=== PATIENT | male | born 1955 | race Caucasian/White ===

== ENCOUNTER 2019-12-15 11:45 | Inpatient (IN) | payer MEDICARE ==
[~2019-12-15] VITALS: Ht 182.9 cm; Wt 130.6 kg
[2019-12-15] MEDS ORDERED: SODIUM CHLORIDE 0.9% 1,000 ML IV ONE (15:09)
[2019-12-15] MEDS ORDERED: FLUMAZENIL 0.1 MG/ML 5ML VIAL IV ONE (15:15)
[2019-12-15] MEDS ORDERED: NALOXONE HCL 1 MG/ML 2ML VIAL IV ONE (15:15)
[2019-12-15 15:32] LABS: CHLORIDE 105 mEq/L (98-107)
[2019-12-15 15:33] LABS: BASOPHILS % 0.6 % (0.0-2.0); EOSINOPHILS % 0.1 % (0.0-5.0); HEMATOCRIT. 46.5 % (42.0-52.0); HEMOGLOBIN. 16.4 g/dL (14.0-18.0); MEAN PLATELET VOLUME 9.9 fl (7.4-10.4); MONOCYTES % 9.2 % (2.0-8.0); NEUTROPHILS % 73.1 % (40.0-76.0); PLATELET 182 x1000/uL (130-400); RED BLOOD CELL COUNT 4.43 mill/uL (4.7-6.1); RED CELL DISTRIBUTION WIDTH 13.9 % (11.6-14.6)
[2019-12-15 15:36] LABS: ETHANOL BLOOD < 10 mg/dL
[2019-12-15 17:03] LABS: CLARITY URINE TURBID (CLEAR); COLOR URINE DARK YELLOW (YELLOW); KETONES URINE TRACE (NEGATIVE); LEUKOCYTE ESTERASE URINE 2+ (NEGATIVE); NITRITE URINE NEGATIVE (NEGATIVE); OCCULT BLOOD URINE 1+ (NEGATIVE); PROTEIN URINE 1+ (NEGATIVE); SPECIFIC GRAVITY URINE 1.029 (1.005-1.030)
[2019-12-15 17:17] LABS: *AMPHETAMINES SCREEN URINE NEGATIVE (NEGATIVE); *BARBITURATES SCREEN URINE NEGATIVE (NEGATIVE); *BENZODIAZEPINES SCREEN URINE PRESUMTIVE POSITIVE (NEGATIVE); *COCAINE SCREEN URINE NEGATIVE (NEGATIVE); CANNABINOID URINE SCREEN PRESUMTIVE POSITIVE (NEGATIVE); METHADONE URINE SCREEN NEGATIVE (NEGATIVE); OPIATES URINE SCREEN NEGATIVE (NEGATIVE); PHENCYCLIDINE URINE SCREEN NEGATIVE (NEGATIVE)
[2019-12-15] MEDS ORDERED: LEVOFLOXACIN 250MG TABLET PO ONE (18:30)
[2019-12-15] MEDS ORDERED: SODIUM CHLORIDE 0.9% 1000ML BAG (SEPSIS BOLUS) IV ONE (18:30)
[2019-12-15] MEDS ORDERED: LEVOFLOXACIN 750MG PREMIX 150 ML IV NR (18:30)
[2019-12-15] MEDS: SODIUM CHLORIDE 0.9% 1,000 ML IV SCH (20:23)
[2019-12-15] MEDS ORDERED: MAGNESIUM/ALUMINUM HYDROXIDE/SIMETHICONE 30ML UDC PO PRN (20:30)
[2019-12-15] MEDS ORDERED: ONDANSETRON HCL 4MG/2ML INJ IV PRN (20:30)
[2019-12-15] MEDS ORDERED: HYDROCODONE/ACETAMINOPHEN 10/325MG TABLET PO SCH (20:30)
[2019-12-15] MEDS ORDERED: LEVOFLOXACIN 500MG PREMIX 100 ML IV SCH (20:30)
[2019-12-15] MEDS ORDERED: GUAIFENESIN 200MG/10ML SUGAR FREE UDC PO PRN (20:30)
[2019-12-15] MEDS ORDERED: ACETAMINOPHEN 325MG TABLET PO PRN (20:30)
[2019-12-15 23:00] VITALS: BP 131/83
[2019-12-16] MEDS ORDERED: METF-416 MT (00:59)
[2019-12-16] MEDS ORDERED: LISI40TA4 MT (00:59)
[2019-12-16] MEDS ORDERED: ASPI325T85 MT (01:03)
[2019-12-16] MEDS ORDERED: ACET-2708 PO (01:03)
[2019-12-16] MEDS ORDERED: CLOP75TA33 PO (01:03)
[2019-12-16] MEDS ORDERED: CARV6.2548 MT (01:03)
[2019-12-16] MEDS ORDERED: ATOR40TA70 MT (01:03)
[2019-12-16 04:00] VITALS: BP 109/71
[2019-12-16 06:12] LABS: CHLORIDE 109 mEq/L (98-107)
[2019-12-16 07:00] LABS: EOSINOPHILS % 1.6 % (0.0-5.0); HEMATOCRIT. 37.3 % (42.0-52.0); HEMOGLOBIN. 13.3 g/dL (14.0-18.0); MEAN CORPUSCULAR HEMOGLOBIN 37.8 pg (28.0-32.0); MEAN CORPUSCULAR VOLUME 106.2 fL (80.0-94.0); MEAN PLATELET VOLUME 9.2 fl (7.4-10.4); MONOCYTES % 11.4 % (2.0-8.0); PLATELET 110 x1000/uL (130-400); RED BLOOD CELL COUNT 3.51 mill/uL (4.7-6.1); RED CELL DISTRIBUTION WIDTH 14.2 % (11.6-14.6)
[2019-12-16 08:00] VITALS: BP 140/74
[2019-12-16] MEDS: SODIUM CHLORIDE 0.9% 1,000 ML IV SCH ×2 (09:12→23:14)
[2019-12-16] MEDS ORDERED: DEXTROSE 50% WATER 50ML SYRINGE IV PRN (11:15)
[2019-12-16] MEDS: CLOPIDOGREL 75MG TABLET PO SCH (11:38)
[2019-12-16] MEDS: HYDROCODONE/ACETAMINOPHEN 5/325MG TABLET PO PRN (11:45)
[2019-12-16 12:00] VITALS: BP 127/72
[2019-12-16] MEDS: INSULIN LISPRO 100 UNITS/ML SUBCUT SCH ×3 (12:50→21:00)
[2019-12-16] MEDS: BLOOD SUGAR DIAGNOSTIC STRIP TEST SCH ×3 (12:59→21:08)
[2019-12-16 16:00] VITALS: BP 129/89
[2019-12-16] MEDS: METFORMIN HCL 500MG TABLET PO SCH (18:33)
[2019-12-16 20:00] VITALS: BP 146/100
[2019-12-16] MEDS ORDERED: LEVOFLOXACIN 500MG PREMIX 100 ML IV SCH (20:00)
[2019-12-16] MEDS: KETOROLAC 15MG/ML VIAL IV PRN (20:29)
[2019-12-16] MEDS: AMLODIPINE 5MG TABLET PO SCH (20:29)
[2019-12-16] MEDS: LEVOFLOXACIN 500MG PREMIX 100 ML IV SCH (21:08)
[2019-12-17] VITALS: BP 122/86
[2019-12-17 04:00] VITALS: BP 156/94
[2019-12-17] MEDS: CLONIDINE 0.1MG TABLET PO PRN ×2 (05:39→17:22)
[2019-12-17] MEDS: BLOOD SUGAR DIAGNOSTIC STRIP TEST SCH ×4 (06:10→21:17)
[2019-12-17] MEDS: HYDROCODONE/ACETAMINOPHEN 5/325MG TABLET PO PRN ×2 (06:11→21:04)
[2019-12-17] MEDS: INSULIN LISPRO 100 UNITS/ML SUBCUT SCH ×4 (07:50→21:00)
[2019-12-17 08:00] VITALS: BP 118/73
[2019-12-17] MEDS: AMLODIPINE 5MG TABLET PO SCH ×2 (09:20→20:49)
[2019-12-17] MEDS: CLOPIDOGREL 75MG TABLET PO SCH (09:20)
[2019-12-17] MEDS: KETOROLAC 15MG/ML VIAL IV PRN ×2 (09:21→17:40)
[2019-12-17] MEDS: METFORMIN HCL 500MG TABLET PO SCH ×2 (09:31→17:21)
[2019-12-17] MEDS: DOCUSATE SODIUM 100MG CAPSULE PO PRN ×2 (09:31→17:22)
[2019-12-17 12:00] VITALS: BP 149/91
[2019-12-17] MEDS: SODIUM CHLORIDE 0.9% 1,000 ML IV SCH (14:43)
[2019-12-17 16:00] VITALS: BP 168/99
[2019-12-17 20:00] VITALS: BP 148/86
[2019-12-17] MEDS: LEVOFLOXACIN 500MG PREMIX 100 ML IV SCH (20:50)
[2019-12-18] VITALS: BP 150/85
[2019-12-18] MEDS: HYDROCODONE/ACETAMINOPHEN 5/325MG TABLET PO PRN ×5 (01:08→23:08)
[2019-12-18] MEDS: SODIUM CHLORIDE 0.9% 1,000 ML IV SCH ×2 (01:10→15:46)
[2019-12-18 04:00] VITALS: BP 178/101
[2019-12-18] MEDS: CLONIDINE 0.1MG TABLET PO PRN ×2 (04:25→23:08)
[2019-12-18] MEDS: INSULIN LISPRO 100 UNITS/ML SUBCUT SCH ×4 (07:30→21:00)
[2019-12-18] MEDS: BLOOD SUGAR DIAGNOSTIC STRIP TEST SCH ×4 (07:30→21:32)
[2019-12-18 08:00] VITALS: BP 167/99
[2019-12-18] MEDS: METFORMIN HCL 500MG TABLET PO SCH ×2 (08:33→18:16)
[2019-12-18] MEDS: CLOPIDOGREL 75MG TABLET PO SCH (08:33)
[2019-12-18] MEDS: AMLODIPINE 5MG TABLET PO SCH ×2 (08:33→20:52)
[2019-12-18] MEDS ORDERED: IPRATROPIUM/ALBUTEROL 0.5-3(2.5)MG/3ML NEB HHN PRN (10:45)
[2019-12-18 12:00] VITALS: BP 154/86
[2019-12-18 16:00] VITALS: BP 142/84
[2019-12-18 20:00] VITALS: BP 182/95
[2019-12-18] MEDS: LEVOFLOXACIN 500MG TABLET PO SCH (20:51)
[2019-12-19] VITALS: BP 156/104
[2019-12-19 04:00] VITALS: BP 161/91
[2019-12-19] MEDS: SODIUM CHLORIDE 0.9% 1,000 ML IV SCH ×2 (05:13→17:39)
[2019-12-19] MEDS: HYDROCODONE/ACETAMINOPHEN 5/325MG TABLET PO PRN ×3 (05:42→17:22)
[2019-12-19] MEDS: BLOOD SUGAR DIAGNOSTIC STRIP TEST SCH ×4 (07:04→21:17)
[2019-12-19] MEDS: INSULIN LISPRO 100 UNITS/ML SUBCUT SCH ×4 (07:25→21:00)
[2019-12-19 08:00] VITALS: BP 186/97
[2019-12-19] MEDS: METFORMIN HCL 500MG TABLET PO SCH ×2 (09:05→17:48)
[2019-12-19] MEDS: CLOPIDOGREL 75MG TABLET PO SCH (09:05)
[2019-12-19] MEDS: AMLODIPINE 5MG TABLET PO SCH ×2 (09:07→21:17)
[2019-12-19] MEDS: CLONIDINE 0.1MG TABLET PO PRN ×2 (09:11→15:18)
[2019-12-19 12:00] VITALS: BP 175/98
[2019-12-19 16:00] VITALS: BP 160/87
[2019-12-19 20:00] VITALS: BP 153/100
[2019-12-19] MEDS: LEVOFLOXACIN 500MG TABLET PO SCH (21:18)
[2019-12-20] VITALS (7 sets, daily range): BP systolic 125–180; BP diastolic 79–101
[2019-12-20] MEDS: HYDROCODONE/ACETAMINOPHEN 5/325MG TABLET PO PRN ×5 (02:14→20:54)
[2019-12-20] MEDS: CLONIDINE 0.1MG TABLET PO PRN ×2 (02:21→09:22)
[2019-12-20] MEDS: BLOOD SUGAR DIAGNOSTIC STRIP TEST SCH ×4 (06:24→20:53)
[2019-12-20] MEDS: SODIUM CHLORIDE 0.9% 1,000 ML IV SCH (06:25)
[2019-12-20] MEDS: INSULIN LISPRO 100 UNITS/ML SUBCUT SCH ×4 (07:50→21:00)
[2019-12-20] MEDS: AMLODIPINE 5MG TABLET PO SCH ×2 (09:21→20:51)
[2019-12-20] MEDS: METFORMIN HCL 500MG TABLET PO SCH ×2 (09:21→17:15)
[2019-12-20] MEDS: CLOPIDOGREL 75MG TABLET PO SCH (09:22)
[2019-12-20] MEDS ORDERED: NITROGLYCERIN 0.4MG TABLET SL SL PRN (11:45)
[2019-12-21] VITALS: BP 147/88
[2019-12-21 04:00] VITALS: BP 142/85
[2019-12-21] MEDS: HYDROCODONE/ACETAMINOPHEN 5/325MG TABLET PO PRN ×2 (04:22→08:23)
[2019-12-21] MEDS: BLOOD SUGAR DIAGNOSTIC STRIP TEST SCH ×2 (06:55→12:15)
[2019-12-21] MEDS: INSULIN LISPRO 100 UNITS/ML SUBCUT SCH ×2 (06:55→12:15)
[2019-12-21 08:00] VITALS: BP 165/96
[2019-12-21] MEDS: CLOPIDOGREL 75MG TABLET PO SCH (08:19)
[2019-12-21] MEDS: METFORMIN HCL 500MG TABLET PO SCH (08:19)
[2019-12-21] MEDS: AMLODIPINE 5MG TABLET PO SCH (08:19)
[2019-12-21] MEDS: CLONIDINE 0.1MG TABLET PO PRN (08:20)
[2019-12-21 12:00] VITALS: BP 153/64
[2019-12-21 12:40] VITALS: BP 117/85
== END 2019-12-21 14:25 | disposition home or self-care (01) | DRG 689 ==
LOC: ER 11:53 → 6WST 18:48 → EDBEDREQ 18:51 → EDBEDREQSVC 18:51 → EDBEDREQTM 18:51 → ENRESERV 21:17 → 6EST 23:12
PROVIDERS: ADMIT Hospitalist; ATTEND Hospitalist
DX: N39.0 Urinary tract infection, site not specified (principal); G93.41 Metabolic encephalopathy; E11.9 Type 2 diabetes mellitus without complications; F13.10 Sedative, hypnotic or anxiolytic abuse, uncomplicated; R74.0 Nonspecific elevation of levels of transaminase and lactic acid dehydrogenase [LDH]; I10 Essential (primary) hypertension; R07.9 Chest pain, unspecified; M17.11 Unilateral primary osteoarthritis, right knee; I25.10 Atherosclerotic heart disease of native coronary artery without angina pectoris; F12.10 Cannabis abuse, uncomplicated; Z59.0 Homelessness; Z86.73 Personal history of transient ischemic attack (TIA), and cerebral infarction without residual deficits; Z95.5 Presence of coronary angioplasty implant and graft
CPT/HCPCS: 36415; 71045; 73560; 80053; 80305; 80320; 81003; 82962; 83036; 84145; 84484; 85025; 93005; 93306; 93970; 99291; J1885; J1956; J2310; J3490; J7030; G0480